=== PATIENT | female | born 1980 ===

== ENCOUNTER 2017-01-16 12:49 | Emergency (ER) | payer MEDICAID ==
[2017-01-16 13:03] VITALS: BP 117/64; PULSE 92; RESP 18; TEMP 99.1; O2SAT 99
[2017-01-16] MEDS ORDERED: Albuterol-Ipratrop 3 mg / 0.5 (3 ml) UD INH STA (13:20)
--- NOTE | 2017-01-16 13:22 | ED PDOC ---
HPI: General Adult Time Seen by Provider: 01/16/17 13:18 Chief Complaint (Nursing): Cough, Cold, Congestion Chief Complaint (Provider): COUGH/URI History Per: Patient (36 Y/O FEMALE HERE WITH 6 DAYS OF COUGH/URI/BODYACHES/ SORE THROAT. NOTES BILATERAL EAR PAIN. DENIES ANY VOMITING/DIARRHEA. STATES SHE WAS IN [facility] DURING ONSET OF SYMPTOMS. NO ILL CONTACTS. NO H/O ASTHMA) Past Medical History Reviewed: Historical Data, Nursing Documentation, Vital Signs Vital Signs: Last Vital Signs Temp 99.1 F 01/16/17 12:59 Pulse 92 H 01/16/17 12:59 Resp 18 01/16/17 12:59 BP 117/64 01/16/17 12:59 Pulse Ox 99 01/16/17 13:22 - Medical History PMH: Cardia Arrhythmia (h/o SVT) - Family History Family History: States: No Known Family Hx - Home Medications Home Medications: Ambulatory Orders Medication Instructions Recorded Acetaminophen [Acetaminophen Extra 2 tab PO Q6 PRN #24 tablet 01/16/17 Strength] Albuterol HFA [Ventolin HFA 90 2 puff IH [id number] PRN #1 inh 01/16/17 mcg/actuation (8 g)] Promethazine/Codeine 5 ml PO Q12 PRN #100 ml 01/16/17 [Codeine/Promethazine 10 MG/5 Ml-6.25 MG/5 Ml] - Allergies Allergies/Adverse Reactions: Allergies Allergy/AdvReac Type Severity Reaction Status Date / Time No Known Allergies Allergy Verified 01/26/16 14:46 Review of Systems ROS Statement: Except As Marked, All Systems Reviewed And Found Negative Constitutional: Positive for: Fever, Chills ENT: Positive for: Nose Congestion, Throat Pain Respiratory: Positive for: Cough Physical Exam - Reviewed Nursing Documentation Reviewed: Yes Vital Signs Reviewed: Yes - Physical Exam Appears: Positive for: Well, Non-toxic, No Acute Distress Head Exam: Positive for: ATRAUMATIC, NORMAL INSPECTION, NORMOCEPHALIC Skin: Positive for: Normal Color, Warm, DRY Eye Exam: Positive for: EOMI, Normal appearance, PERRL ENT: Positive for: Normal ENT Inspection Neck: Positive for: Normal, Painless ROM Cardiovascular/Chest: Positive for: Regular Rate, Rhythm Respiratory: Positive for: Normal Breath Sounds, Rhonchi Gastrointestinal/Abdominal: Positive for: Normal Exam, Bowel Sounds, Soft Back: Positive for: Normal Inspection Extremity: Positive for: Normal ROM Neurologic/Psych: Positive for: Alert, Oriented - ECG O2 Sat by Pulse Oximetry: 99 - Progress ED Course And Treament: cxr: nad rapid strep negative Disposition - Clinical Impression Clinical Impression: Flu-like symptoms - Patient ED Disposition Is Patient to be Admitted: No - Disposition Disposition: Routine/Home Disposition Time: 15:00 Condition: FAIR Prescriptions: Albuterol HFA [Ventolin HFA 90 mcg/actuation (8 g)] 2 puff IH [id number] PRN #1 inh PRN Reason: Cough Acetaminophen [Acetaminophen Extra Strength] 2 tab PO Q6 PRN #24 tablet PRN Reason: Fever >100.4 F Promethazine/Codeine [Codeine/Promethazine 10 MG/5 Ml-6.25 MG/5 Ml] 5 ml PO Q12 PRN #100 ml PRN Reason: Cough Instructions: Influenza (ED) Forms: [facility] ED School/Work Excuse
[2017-01-16] MEDS ORDERED: Albuterol-Ipratrop 3 mg / 0.5 (3 ml) UD ONE (13:28)
--- NOTE | 2017-01-16 15:09 | RAD ---
HISTORY: COUGH COMPARISON: 11/17/2016 TECHNIQUE: Chest PA and lateral FINDINGS: LUNGS: The lungs are well inflated and clear. PLEURA: No significant pleural effusion identified. No pneumothorax apparent. CARDIOVASCULAR: Normal. OSSEOUS STRUCTURES: No significant abnormalities. VISUALIZED UPPER ABDOMEN: Normal. OTHER FINDINGS: None. IMPRESSION: No active pulmonary disease.
== END 2017-01-16 15:15 | disposition home or self-care (01) ==
LOC: H.ER 12:49
DX: J11.1 Influenza due to unidentified influenza virus with other respiratory manifestations (principal)

== ENCOUNTER 2017-01-18 08:30 | Emergency (ER) | payer MEDICAID ==
[2017-01-18 08:37] VITALS: BP 112/69; TEMP 98
[2017-01-18 08:38] VITALS: BMI 41.0
[2017-01-18 08:43] VITALS: PULSE 74; RESP 20; O2SAT 98
--- NOTE | 2017-01-18 09:01 | ED PDOC ---
HPI: CCC, URI, Sore Throat Time Seen by Provider: 01/18/17 08:42 Chief Complaint (Nursing): ENT Problem Chief Complaint (Provider): ENT Problem History Per: Patient History/Exam Limitations: no limitations Onset/Duration Of Symptoms: Days Current Symptoms Are (Timing): Still Present Location Of Pain: Throat Sick Contacts (Context): None Associated Symptoms: Sore Throat, Cough Ear Symptoms: Bilateral: None Severity: Mild Additional Complaint(s): Patient is a 36 year old female who presents to ED for evaluation of a continued sore throat for 1 week. Patient states she was evaluated in ED 2 days ago, prescribed cough syrup, albuterol nebs and Tylenol but states no relief from pain. Reports that initially she had body aches and fevers but that has since resolved, only the cough and sore throat remain. Past Medical History Reviewed: Historical Data, Nursing Documentation, Vital Signs Vital Signs: Last Vital Signs Temp 98 F 01/18/17 08:37 Pulse 74 01/18/17 08:40 Resp 20 01/18/17 08:40 BP 112/69 01/18/17 08:37 Pulse Ox 98 01/18/17 09:02 - Medical History PMH: Cardia Arrhythmia (h/o SVT) - Surgical History Surgical History: No Surg Hx - Family History Family History: States: No Known Family Hx - Living Arrangements Living Arrangements: With Family - Home Medications Home Medications: Ambulatory Orders Medication Instructions Recorded Acetaminophen [Acetaminophen Extra 2 tab PO Q6 PRN #24 tablet 01/16/17 Strength] Albuterol HFA [Ventolin HFA 90 2 puff IH [id number] PRN #1 inh 01/16/17 mcg/actuation (8 g)] Promethazine/Codeine 5 ml PO Q12 PRN #100 ml 01/16/17 [Codeine/Promethazine 10 MG/5 Ml-6.25 MG/5 Ml] Benzocaine/Menthol [Cepacol Sore 1 each MM Q8 PRN #20 lozenge 01/18/17 Throat Lozenge] Ibuprofen [Motrin] 600 mg PO Q6 PRN #20 tab 01/18/17 - Allergies Allergies/Adverse Reactions: Allergies Allergy/AdvReac Type Severity Reaction Status Date / Time No Known Allergies Allergy Verified 01/18/17 08:40 Review of Systems Constitutional: Negative for: Fever, Chills ENT: Positive for: Throat Pain. Negative for: Nose Congestion, Throat Swelling Respiratory: Positive for: Cough. Negative for: Shortness of Breath Gastrointestinal: Negative for: Vomiting Musculoskeletal: Negative for: Neck Pain Skin: Negative for: Rash Physical Exam - Reviewed Nursing Documentation Reviewed: Yes Vital Signs Reviewed: Yes - Physical Exam Appears: Positive for: Non-toxic, No Acute Distress Skin: Positive for: Normal Color, Warm. Negative for: Rash Eye Exam: Positive for: Normal appearance ENT: Positive for: Pharyngeal Erythema (mild). Negative for: Tonsillar Exudate , Tonsillar Swelling Neck: Positive for: Normal, Painless ROM, Supple Extremity: Positive for: Normal ROM Lymphatic: Positive for: Normal Exam Neurologic/Psych: Positive for: Alert, Oriented - ECG O2 Sat by Pulse Oximetry: 98 (RA) Pulse Ox Interpretation: Normal Medical Decision Making Medical Decision Making: Time: 854 Initial impression: Viral pharyngitis Initial plan: -- Motrin PO Discussed with patient that this is viral, no antibiotics are needed at this time. Instructed patient to take Motrin and Tylenol as needed for pain as well as to take Lozenges for numbing relief. Scribe Attestation: Documented by Anna Lyon acting as a scribe for Ernst Zelaya MD MD Scribe Attestation: All medical record entries made by the Scribe were at my direction and personally dictated by me. I have reviewed the chart and agree that the record accurately reflects my personal performance of the history, physical exam, medical decision making, and the department course for this patient. I have also personally directed, reviewed, and agree with the discharge instructions and disposition. Disposition - Clinical Impression Clinical Impression: Pharyngitis - Patient ED Disposition Is Patient to be Admitted: No Doctor Will See Patient In The: Office Counseled Patient/Family Regarding: Studies Performed, Diagnosis, Need For Followup - Disposition Referrals: [facility] [Outside] Disposition Time: 09:00 Condition: GOOD Additional Instructions: Follow up with your PCP in 2-3 days. Prescriptions: Benzocaine/Menthol [Cepacol Sore Throat Lozenge] 1 each MM Q8 PRN #20 lozenge PRN Reason: Sore Throat Ibuprofen [Motrin] 600 mg PO Q6 PRN #20 tab PRN Reason: Sore Throat Instructions: Pharyngitis (ED)
== END 2017-01-18 09:12 | disposition home or self-care (01) ==
LOC: H.ER 08:30
DX: J02.8 Acute pharyngitis due to other specified organisms (principal)